=== PATIENT | male | born 1935 | race Caucasian/White ===

== ENCOUNTER → 2018-06-24 09:52 | Day surgery (SDC) | payer MEDICARE, OTHER ==
[~2018-06-24 09:52] MED LIST: Bupivacaine 0.25% SDV PF* 10 ML VIAL INJ ONE
[2018-06-24 12:47] VITALS: BP 130/68
--- NOTE | 2018-06-24 17:41 | OP ---
OPERATIVE REPORT: DATE OF OPERATION: 06/24/18 DATE OF : 37 SURGEON: Loco Clemente MD OVERHAULER BUS TRUCK: ROBERTO CARLOS Piedra ANESTHESIOLOGIST: None. ANESTHESIA: Local only with 0.25% plain Marcaine. PRE-OP DIAGNOSIS: Right ulnar-sided hand mass. POST-OP DIAGNOSIS: Right ulnar-sided hand mass most consistent with a cyst. OPERATIVE PROCEDURE: Excision of right ulnar-sided hand mass. INDICATIONS: Anthony has had the mass for some time. It has been stable, but it is quite large. It h as a darker discoloration to it. We had talked about risks and benefits of surgery. He wanted to calhoun ve it excised. FINDINGS: See above and below. ESTIMATED BLOOD LOSS: 1 mL. COMPLICATIONS: None. DESCRIPTION OF PROCEDURE: Anthnoy was seen in the preoperative holding area. The correct side, site, and procedure were identified. We had a time-out. I anesthetized the operative area with 0.25% Iker jonathan. We then came back to the operating room and the arm was prepped and draped in the usual fashio n and time-out was performed. The arm was exsanguinated with the Esmarch and the forearm tourniquet was inflated to 225 mmHg. I ma de a longitudinal incision in the mid axial line over the distal palm, extending out over the fifth M CP joint. The mass was from the underlying tissue via a marginal excision through the reac tive zone. It was generally filled with serous type darker fluid. It was traced back towards the [facility] MCP joint where it was amputated and handed off as a specimen. Ultimately, it was about 2.5 to 3 cm long x 1 cm deep and 1.5 cm wide. I did cauterize the ulnar aspect of the fifth MCP joint with a bipolar cautery to try to prevent any recurrence. We irrigated out the wound. Skin was closed with 4-0 nylon suture. Soft dressing was applied and he was taken to the recovery room in stable conditio n. [id number]/[facility] #: [id number]
== END | disposition home or self-care (01) ==
LOC: OR 09:52
PROVIDERS: ATTEND Orthopaedic Surgery Hand Surgery
DX: D23.61 Other benign neoplasm of skin of right upper limb, including shoulder (principal)
CPT/HCPCS: 88304; 88341; 88342; 88360; J3490

== ENCOUNTER 2019-05-30 10:13 | Inpatient (IN) | payer MEDICARE, OTHER ==
--- NOTE | 2019-05-30 10:36 | ED ---
GI/ HPI - HPI Summary HPI Summary: This patient is an 83 year old male presenting to [facility] with a chief complaint of increased hemoptysis since last night. He states he has been intermittently dealing with this since one month ago and that it was worse last night. He states it gets worse when he lies supine. He states he was coughing up clots. He states this problem first began a month ago when he was treated for pneumonia. He states he is supposed to get a CT scan on Saturday. He denies vomiting. - History of Current Complaint Chief Complaint: EDUpperRespComplaint Time Seen by Provider: 05/30/19 10:27 Stated Complaint: COUGHING UP BLOOD PER PT Hx Obtained From: Patient Onset/Duration: Started Hours Ago Pain Intensity: 0 - Allergy/Home Medications Allergies/Adverse Reactions: Allergies Allergy/AdvReac Type Severity Reaction Status Date / Time Sulfa (Sulfonamide Allergy See Comment Verified 05/30/19 10:19 Antibiotics) Home Medications: Home Medications Acetaminophen TAB* [Tylenol TAB*] 650 mg PO Q4H PRN 05/30/19 [History Confirmed 05/30/19] Dutasteride [Avodart] 0.5 mg PO DAILY 05/30/19 [History Confirmed 05/30/19] Omeprazole 20 mg PO DAILY 05/30/19 [History Confirmed 05/30/19] Prochlorperazine TAB* [Compazine Tab*] 10 mg PO Q6HR PRN 05/30/19 [History Confirmed 05/30/19] PMH/Surg Hx/FS Hx/Imm Hx Endocrine/Hematology History: Denies: Hx Diabetes Cardiovascular History: Denies: Hx Hypertension History: Denies: Hx Dialysis, Hx Renal Disease Musculoskeletal History: Reports: Hx Arthritis - Cancer History Cancer Type, Location and Year: melanoma - Surgical History Surgery Procedure, Year, and Place: right hand Infectious Disease History: No Infectious Disease History: Denies: Traveled Outside the [place] in Last 30 Days - Family History Known Family History: Negative: Cardiac Disease - Social History Occupation: Retired Lives: With Family Review of Systems Negative: Fever Positive: Cough Negative: Vomiting Positive: other - Hemoptysis All Other Systems Reviewed And Are Negative: Yes Physical Exam - Summary Physical Exam Summary: Appearance: The patient is well-nourished in no acute distress and in no acute pain. Skin: The skin is warm and dry, and skin color reflects adequate perfusion. HEENT: The head is normocephalic and atraumatic. The pupils are equal and reactive. The conjunctivae are clear and without drainage. Nares are patent and without drainage. Mouth reveals moist mucous membranes, and the throat is without erythema and exudate. The external ears are intact. The ear canals are patent and without drainage. The tympanic membranes are intact. Neck: The neck is supple with full range of motion and non-tender. There are no carotid bruits. There is no neck vein distension. Respiratory: Chest is non-tender. Decreased breath sounds on the left egophony. Cardiovascular: Heart is regular rate and rhythm. There is no murmur or rub auscultated. There is no peripheral edema and pulses are symmetrical and equal. Abdomen: The abdomen is soft and non-tender. There are normal bowel sounds heard in all four quadrants and there is no organomegaly palpated. Musculoskeletal: There is no back tenderness noted. Extremities are non-tender with full range of motion. There is good capillary refill. There is no peripheral edema or calf tenderness elicited. Neurological: Patient is alert and oriented to person, place and time. The patient has symmetrical motor strength in all four extremities. Cranial nerves are grossly intact. Deep tendon reflexes are symmetrical and equal in all four extremities. Psychiatric: The patient has an appropriate affect and does not exhibit any anxiety or depression. Triage Information Reviewed: Yes Vital Signs On Initial Exam: Initial Vitals Temp Pulse Resp BP Pulse Ox 98.8 F 94 20 137/87 97 05/30/19 10:16 05/30/19 10:16 05/30/19 10:16 05/30/19 10:16 05/30/19 10:16 Vital Signs Reviewed: Yes Procedures - Sedation Patient Received Moderate/Deep Sedation with Procedure: No Diagnostics - Vital Signs Vital Signs Temp Pulse Resp BP Pulse Ox 05/30/19 10:16 98.8 F 94 20 137/87 97 - Laboratory Result Diagrams: 05/30/19 11:28 05/30/19 11:28 Lab Statement: Any lab studies that have been ordered have been reviewed, and results considered in the medical decision making process. - CT CTA Chest CT Interpretation Completed By: Radiologist Summary of CT Findings: 1. No CT evidence of pulmonary embolism. 2. Again seen is a left hilar mass occluding the left lower lobe bronchus with complete consolidation of the left lower lobe. Although appearance is stable, there is new mediastinal lymphadenopathy. The largest lymph node is a left of midline pretracheal lymph note measuing 2 cm. 3. TRANSFER AGENT July 07, 2018 CT examination there is interval appearance of a destrutive soft tissue lesion at the right of midline L1 vertebral body. New metastatic disease is suspected. ED Physician has reviewed this report. - EKG 1057 Cardiac Rate: NL - 74 BPM EKG Rhythm: Sinus Rhythm Summary of EKG Findings: Normal sinus rhythm, normal ST, no ectopy, no STEMI. ED Physician has reviewed and interpreted this report. GIGU Course/Dx - Course Course Of Treatment: Mr. Mandujano tingling concern for hemoptysis. He is a very vague historian but it appears as though he has had hemoptysis intermittently for several weeks. It was particularly bad yesterday and kept him awake a lot last night coughing up clots. 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 He's had a recent chest x-ray which she says was negative. He was recently treated with azithromycin for presumed pneumonia. He was nontoxic in appearance with stable vitals. He was found to have a hemoglobin of about 12 which is consistent with his last 2 however these are new in the last couple of weeks with nothing to compare to. CTA of his chest reveals a mediastinal mass. The radiologist is reporting that this is unchanged from previous exams however I cannot find any previous exams in our system that are read as having a mediastinal mass. I spoke with Dr. Salazar carbon cutter for Dr. Xiao and she recommended admission to the hospitalist. I spoke with Dr. Reyes. - Diagnoses Provider Diagnoses: Hemoptysis, Lung mass - Physician Notifications Discussed Care Of Patient With: Stephani Salazar Time Discussed With Above Provider: 14:14 Instructed by Provider To: Admit As Inpatient - Critical Care Time Critical Care Time: 30-74 min Discharge ED - Sign-Out/Discharge Documenting (check all that apply): Patient Departure - Admission, accepted by Dr. Reyes, Hospitalist - Discharge Plan Condition: Stable Disposition: ADMITTED TO [facility] - Billing Disposition and Condition Condition: STABLE Disposition: Admitted to [facility] - Attestation Statements Document Initiated by Scribe: Yes Documenting Scribe: Loco Champagne Provider For Whom Scribe is Documenting (Include Credential): Beto Ramires MD Scribe Attestation: I, Loco Champagne, scribed for Beto Ramires MD on 05/30/19 at 2024. Scribe Documentation Reviewed: Yes Provider Attestation: The documentation as recorded by the scribe, Loco Champagne accurately reflects the service I personally performed and the decisions made by me, Beto Ramires MD Status of Scribe Document: Viewed
[2019-05-30 11:38] LABS: ABS Basophils 0.1 10^3/ul (0-0.2); ABS Lymphocytes 0.7 10^3/ul (1.0-4.8); ABS Monocytes 0.8 10^3/ul (0-0.8); ABS Neutrophils 6.7 10^3/ul (1.5-7.7); Hematocrit 36 % (42-52); Hemoglobin 12.1 g/dL (14.0-18.0); Lymphocyte % 8.2 %; Mean Corpuscular HGB Conc 34 g/dL (31-36); Mean Corpuscular Hemoglobin 30 pg (27-31); Mean Corpuscular Volume 90 fL (80-94); Mean Platelet Volume 7.3 fL (7.4-10.4); Platelet Count 275 10^3/uL (150-450); Red Blood Count 3.98 10^6 /uL (4.18-5.48); Red Cell Distribution Width 13 % (10-15); White Blood Count 8.2 10^3/uL (3.5-10.8)
[2019-05-30 11:51] LABS: INR 1.35 (0.82-1.09)
[2019-05-30 11:55] LABS: ALT 20 U/L (7-52); AST 14 U/L (13-39); Albumin 3.6 g/dL (3.2-5.2); Albumin/Globulin Ratio 0.9 (1-3); Alkaline Phosphatase 64 U/L (34-104); Anion Gap 9 mmol/L (2-11); BUN/Creatinine Ratio 21.1 (8-20); Blood Urea Nitrogen 19 mg/dL (6-24); C Reactive Protein 98.68 mg/L (<8.01); CO2 Carbon Dioxide 23 mmol/L (22-32); Calcium 9.1 mg/dL (8.6-10.3); Chloride 101 mmol/L (101-111); EGFR African American 97.8 (>60); EGFR Non-African American 80.8 (>60); Globulin 3.8 g/dL (2-4); Glucose 106 mg/dL (70-100); Potassium 3.8 mmol/L (3.5-5.0); Sodium 133 mmol/L (135-145); Total Protein 7.4 g/dL (6.4-8.9)
[2019-05-30 12:03] LABS: Troponin I 0.05 ng/mL (<0.04)
[2019-05-30] MEDS ORDERED: Iohexol 350* (CONTRAST) 500 ML MDV IV ONE (12:06)
[2019-05-30] MEDS ORDERED: Levofloxacin 750 MG IVPREMIX(* 750 MG/150 ML BAG IVPB ONE (14:16)
[2019-05-30] MEDS ORDERED: Morphine INJ* 4 MG/ML 1 ML SYRINGE (NEW SYRINGE VERSION) IV ONE (15:29)
[2019-05-30] MEDS ORDERED: Morphine INJ* 2 MG/ML 1 ML SYRINGE (TWO MG - NEW SYRINGE VERSION) ONE ×2 (15:33→19:36)
[2019-05-30] MEDS ORDERED: Acetaminophen TAB* 325 MG PO PRN (15:37)
[2019-05-30] MEDS ORDERED: traMADol TAB* 50 MG PO PRN (15:43)
[2019-05-30] MEDS ORDERED: NS 0.9% 1000 ML** 1,000 ML IV SCH (15:45)
[2019-05-30] MEDS ORDERED: Piperacillin/Tazobac ADVAN(*) 3.375 GM in NS 0.9% 100 ML* 100 ML IVPB ONE (15:46)
[2019-05-30] MEDS ORDERED: Iohexol 300* (CONTRAST) 10 ML SDV IV ONE ×2 (15:55→17:59)
[2019-05-30] MEDS ORDERED: Prochlorperazine TAB* 10 MG PO PRN (15:55)
[2019-05-30] MEDS ORDERED: Zosyn 3.375 GM IV - ED ONCE IVPB ONE ×2 (16:00)
[2019-05-30] MEDS ORDERED: Zosyn per Pharmacy* NOTE FOLLOW UP SCH (16:00)
[2019-05-30] MEDS ORDERED: Heparin VIAL(*) 5000 UNITS/ML VIAL (FIVE THOUSAND) SUBCUT SCH (22:00)
[2019-05-30] MEDS: ZOSYN 3.375 GM Q8H per EXTENDED INFUSION IVPB SCH ×2 (22:03)
[2019-05-30] MEDS: Melatonin 3 MG TAB PO PRN (22:13)
--- NOTE | 2019-05-31 03:02 | HP ---
CC: Elliot Nguyen NP; Dr. Zaire Xiao * MEDICINE HISTORY AND PHYSICAL: DATE OF ADMISSION: 05/30/19 PROVIDER: Louann Wright NP ATTENDING PHYSICIAN: Dr. Matthew Reyes * (dictated by Louann Wright NP). PRIMARY CARE PROVIDER: Elliot Nguyen NP CONSULTING ONCOLOGIST: Stephani Salazar MD CHIEF COMPLAINT: Hemoptysis. HISTORY OF PRESENT ILLNESS: Mr. Mandujano is an 83-year-old male who presents to the ER today with concern for progressive hemoptysis. He reports intermittent hemoptysis that has been ongoing for about a month. On 05/07/19, he saw his PCP and, at that time. was ordered a chest x-ray and started on azithromycin. His chest x-ray did not show any acute pathology, and he states that since he has treated the cough with the antibiotics, the symptoms went away. On Saturday, this past week, he said that the hemoptysis started up again and he coughed up several large blood clots. It resolved, got better, and then it occurred again on Saturday evening where he states that he had a lot of coughing with clots and then this morning he got better again. However, his cough has been more aggravated. It is difficult for him to lie down. He has felt more fatigued and ultimately decided to come in for more evaluation. He does report that his health has felt like it has been going downhill. He reports decreased appetite. He denies any chest pain or leg swelling. He does fatigue more easily than he used to. He reports constipation. He also has right hip pain, for which he has seen Dr. Pino. He states that he had an x-ray , which showed he had arthritis and he recently received a steroid injection with little effect. Right now, his right hip pain is of the most concern to him and states that this is very bothersome for him. He also has right lower abdominal pain, for which he saw Surgery with concern for hernia but was told that he did not have a hernia. Here in the ER, Mr. Mandujano had a CT of the chest, which showed concern for a left hilar mass occluding the left lower lobe bronchus with complete consolidation in the left lower lobe. Although it appears as stable, there is new mediastinal lymphadenopathy. The largest lymph node is a left of midline pretracheal lymph node measuring 2 cm. Compared with the scan on 07/07/18 CT examination, there is interval appearance of a destructive soft tissue lesion at the right of midline L1 vertebral body. New metastatic disease is suspected. No CT evidence of pulmonary embolism. Given these findings and presentation, Hospital Medicine was consulted for admission. PAST MEDICAL HISTORY: Significant for: 1. 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 The patient notes he also has a history of having a pleural tumor removed. 2. BPH. 3. Hyperlipidemia. 4. Anxiety. 5. Postherpetic neuralgia. 6. Cataract removal. HOME MEDICATIONS: 1. Avodart 0.5 mg daily. 2. Compazine 10 mg q.6 hours p.r.n. 3. Tylenol 650 q.4 hours p.r.n. 4. Omeprazole 20 mg daily. ALLERGIES: Include SULFA DRUGS. FAMILY HISTORY: The patient does not recall. SOCIAL HISTORY: He is a former smoker, having formerly smoked a pipe. He states he quit 15 years ago. He rarely drinks alcohol. He is and lives with his . He has 2 children. He names his , Una Mandujano, as his surrogate decision maker and healthcare proxy. REVIEW OF SYSTEMS: A 14-point review of systems was completed. All pertinent positives and negatives as per HPI and all others not mentioned are negative. PHYSICAL EXAMINATION GENERAL: This is an elderly male seen lying in the bed, in no acute distress. He is alert and conversive. VITAL SIGNS: Temperature 98.8, heart rate 85, respiratory rate 20, blood pressure 138/67, O2 saturation is 96% on room air. HEENT: Head is atraumatic and normocephalic. Pupils are equal, round, and reactive to light and accommodation. Extraocular movements are intact. Sclerae anicteric. Oral mucosa is moist. There is no oropharyngeal erythema or exudate. NECK: Supple with full range of motion. No JVD noted. No lymphadenopathy appreciated. LUNGS: Notably decreased on the left side with positive egophony noted in the lower lobe. CARDIAC: Regular rate and rhythm. No murmurs appreciated. There is no peripheral edema. Distal pulses are 2+ and symmetric in the radial and dorsalis pedis and posterior tibialis sites. ABDOMEN: Soft, nondistended. There is tenderness with palpation to the right lower abdomen extending into the groin. MUSCULOSKELETAL: No clubbing or cyanosis of the digits. There is full active range of motion of all 4 extremities. NEURO: He is alert and oriented x3. No focal deficits noted. Speech is fluent. Cranial nerves are grossly intact. SKIN: Warm and dry. Appears grossly intact. LABORATORY DATA AND DIAGNOSTIC STUDIES: CBC: WBC 8.2, hemoglobin 12.1, hematocrit 36, platelet count 275. INR 1.35. CMP: Sodium 133, potassium 3.8, chloride 101, carbon dioxide 23, BUN 19, creatinine 0.90, glucose 106, lactic acid 1.0, calcium 9.1. Total bilirubin 0.6, AST 14, ALT 20. Troponin 0.05. CRP 98.68. Albumin 3.6. CT of the chest as per above. EKG shows normal sinus rhythm with no ST- or T-wave changes. Old medical records were reviewed. ASSESSMENT AND PLAN: This is an 83-year-old male who presents today with concern for hemoptysis and is found to have concern for a left hilar mass and left lower lobe consolidation with new mediastinal lymphadenopathy. He will be admitted and plan is as follows: 1. Lung mass with mediastinal lymphadenopathy. This may represent metastatic disease or new malignancy. This is unclear. I have reviewed the case with Dr. Stephani Salazar, who will see the patient tomorrow. I have also put a consult in for Pulmonology to follow the patient on Saturday, as they are not on service this weekend. I did touch base with Dr. Varma briefly and make her aware of the patient. Mr. Mandujano is currently stable, not requiring any respiratory interventions at this time. He is maintaining his airway. He is not requiring oxygen. We will continue with supportive care, and he is currently receiving antibiotics for concern for his left lower lobe consolidation. He was started on Levaquin in the ER, but given the risks that are associated with fluoroquinolones in the elderly, I have switched him to Zosyn. 2. Elevated troponin. We will recheck this. He is not complaining of any chest pain. This may be reactive and suspect secondary to demand ischemia. 3. Anemia. Appears chronic and within baseline. Recheck tomorrow to follow. 4. Hyponatremia. It was checked a few days ago and was 132. Suspect this may be secondary to volume depletion, and we will replete him with an additional bag of normal saline and recheck tomorrow. 5. BPH. He can continue his home Avodart. 6. Right hip pain. This was determined to be osteoarthritis by x-ray and he has followed in the outpatient setting with Dr. Pino for this. He is in quite a bit of pain and has requested something stronger. We will start with 1 mg morphine and titrate upwards based on tolerance and I will also trial him on p.r.n. tramadol. 7. FEN. Regular diet. 8. DVT prophylaxis. Chemoprophylaxis is contraindicated in a patient with hemoptysis. We will order him SCDs. 9. Code status. He is a full code. TIME SPENT: Approximately 60 minutes was spent on this admission, with more than half the time spent [id number] with the patient and family obtaining history and physical, performing the physical examination, and reviewing the plan of care. The plan of care was also reviewed with my attending, Dr. Reyes , who is in agreement. LOUANN WRIGHT, CHELSI [id number]/[facility] #: [id number] TULIO
[2019-05-31 05:26] LABS: ABS Basophils 0.1 10^3/ul (0-0.2); ABS Lymphocytes 0.7 10^3/ul (1.0-4.8); ABS Monocytes 0.9 10^3/ul (0-0.8); ABS Neutrophils 7.4 10^3/ul (1.5-7.7); Eosinophil % 0.3 %; Hematocrit 35 % (42-52); Hemoglobin 11.7 g/dL (14.0-18.0); Lymphocyte % 7.7 %; Mean Corpuscular HGB Conc 34 g/dL (31-36); Mean Corpuscular Hemoglobin 31 pg (27-31); Mean Corpuscular Volume 90 fL (80-94); Mean Platelet Volume 7.4 fL (7.4-10.4); Platelet Count 245 10^3/uL (150-450); Red Blood Count 3.85 10^6 /uL (4.18-5.48); Red Cell Distribution Width 13 % (10-15); White Blood Count 9.1 10^3/uL (3.5-10.8)
[2019-05-31] MEDS: ZOSYN 3.375 GM Q8H per EXTENDED INFUSION IVPB SCH ×6 (05:28→22:14)
[2019-05-31] MEDS: oxyCODONE/Acetamin 5/325 MG* TAB PO PRN (05:37)
[2019-05-31 05:40] LABS: BUN/Creatinine Ratio 19.4 (8-20); Calcium 8.8 mg/dL (8.6-10.3); EGFR African American 94.1 (>60); EGFR Non-African American 77.8 (>60); Potassium 3.7 mmol/L (3.5-5.0)
[2019-05-31] MEDS: Finasteride TAB* 5 MG PO SCH (09:18)
[2019-05-31] MEDS: Morphine INJ* 2 MG/ML 1 ML SYRINGE (TWO MG - NEW SYRINGE VERSION) IV PRN ×3 (09:18→19:51)
[2019-05-31] MEDS: Pantoprazole TAB * 40 MG TAB PO SCH (09:18)
--- NOTE | 2019-05-31 11:30 | PN ---
Subjective Date of Service: 05/31/19 Interval History: Patient reports that hemoptysis is improving, less frequent and smaller amounts. Denies chest pain. Denies abd pain n/v/d. Denies fever or chills. Family History: Unchanged from Admission Social History: Unchanged from Admission Past Medical History: Unchanged from Admission Objective Active Medications: Acetaminophen (Tylenol Tab*) 650 mg PO Q4H PRN PRN Reason: MILD PAIN or TEMP > 100.4 Finasteride (Proscar Tab*) 5 mg PO DAILY [facility]; Protocol Last Admin: 05/31/19 09:18 Dose: 5 mg Piperacillin Sod/Tazobactam (Sod 3.375 gm/ Sodium Chloride) 100 mls @ 25 mls/ hr IVPB Q8H [facility] Last Admin: 05/31/19 05:28 Dose: 25 mls/hr Melatonin (Melatonin) 3 mg PO BEDTIME PRN PRN Reason: SLEEP Last Admin: 05/30/19 22:13 Dose: 3 mg Morphine Sulfate (Morphine Inj (Syringe))*) 2 mg IV Q4H PRN PRN Reason: PAIN - SEVERE Last Admin: 05/31/19 09:18 Dose: 2 mg Ondansetron HCl (Zofran Inj*) 4 mg IV Q6H PRN PRN Reason: NAUSEA/VOMITING Oxycodone/Acetaminophen (Percocet 5/325 Tab*) 1 tab PO Q4H PRN PRN Reason: PAIN - MODERATE Last Admin: 05/31/19 05:37 Dose: 1 tab Pantoprazole Sodium (Protonix Tab*) 40 mg PO DAILY [facility] Last Admin: 05/31/19 09:18 Dose: 40 mg Pharmacy Consult (Zosyn Per Pharmacy*) 1 note FOLLOW UP .ZOSYN PER PHARMACY [facility] Prochlorperazine (Compazine Tab*) 10 mg PO Q6HR PRN PRN Reason: NAUSEA/VOMITING Tramadol HCl (Ultram*) 50 mg PO Q6H PRN PRN Reason: PAIN - MODERATE Last Admin: 05/30/19 17:38 Dose: 50 mg Vital Signs - 8 hr 05/31/19 05/31/19 05/31/19 05:37 07:00 07:30 Temperature 98.4 F Pulse Rate 76 Respiratory 18 16 20 Rate Blood Pressure 129/47 (mmHg) O2 Sat by Pulse 94 Oximetry 05/31/19 05/31/19 05/31/19 08:00 09:18 10:15 Temperature Pulse Rate Respiratory 16 16 16 Rate Blood Pressure (mmHg) O2 Sat by Pulse Oximetry Oxygen Devices in Use Now: None Eyes: No Scleral Icterus Ears/Nose/Mouth/Throat: Clear Oropharnyx, Mucous Membranes Moist Neck: NL Appearance and Movements; NL JVP, Trachea Midline Respiratory: Symmetrical Chest Expansion and Respiratory Effort, Clear to Auscultation, - - diminshed t/o bilat Cardiovascular: NL Sounds; No Murmurs; No JVD, No Edema Abdominal: NL Sounds; No Tenderness; No Distention Extremities: No Edema, No Clubbing, Cyanosis Skin: No Rash or Ulcers Neurological: Alert and Oriented x 3 Nutrition: Taking PO's Result Diagrams: 06/02/19 05:53 06/02/19 05:53 Microbiology and Other Data: Microbiology 05/30/19 21:14 Gram Stain - Final Sputum 05/31/19 04:15 Legionella Urinary Antigen - Final Urine Negative Legionella Antigen Streptococcus pneumoniae Ag Screen - Final Negative S. pneumo Antigen Assess/Plan/Problems-Billing Assessment: Mr. Mandujano is a 83 y.o male with a hx of porocarcinoma of the right hand, bph , hld, anxiety who presented to the emergency room with hemoptysis that started saturday night. - Patient Problems (1) Hemoptysis Status: Acute Code(s): R04.2 - HEMOPTYSIS SNOMED Code(s): 49307763 Comment: Improving - will continue treatment for pneumonia with zosyn - suspect this couls also be related to his lung mass- Dr. Varma to see tomorrow (2) Lung mass Status: Acute Code(s): R91.8 - OTHER NONSPECIFIC ABNORMAL FINDING OF LUNG FIELD SNOMED Code(s): 333168150 Comment: - Patient with left hilar mass occluding left lower lobe consistent with prior CT from 06/2018- but with new enlarged lymph nodes - Dr. Varma consulted in will see the patient in the AM (3) Paraspinal mass Status: Acute Code(s): R22.2 - LOCALIZED SWELLING, MASS AND LUMP, TRUNK SNOMED Code(s): 419970327 Comment: - patient informed - large right paraspinal mass 7x5x5 cm with likely l1l2 spine involvement - will be seen by Dr. Albert tomorrow (4) Pneumonia Status: Acute Code(s): J18.9 - PNEUMONIA, UNSPECIFIED ORGANISM SNOMED Code(s ): 760204206 Comment: mild cough with left lower lung consolidation vs mass and new - enlarged lymph nodes - will continue zosyn (5) Chronic right hip pain Status: Acute Code(s): M25.551 - PAIN IN RIGHT HIP; G89.29 - OTHER CHRONIC PAIN SNOMED Code(s): 20782367 Comment: suspect this is likely related to his right paraspinal mass - will continue pain medications and adjust as needed - will stop tramadol no relief of pain (6) Elevated troponin Status: Acute Code(s): R79.89 - OTHER SPECIFIED ABNORMAL FINDINGS OF BLOOD CHEMISTRY SNOMED Code(s): 289480034 Comment: - elevated on initial labwork 0.05 - repeat - 0.00 - patient without chest pain - likely lab error on initial draw. (7) DVT prophylaxis Status: Acute Code(s): Z29.9 - ENCOUNTER FOR PROPHYLACTIC MEASURES, UNSPECIFIED SNOMED Code(s): 216363554 Comment: scd's - d/t hemoptysis (8) Full code status Status: Acute Code(s): Z78.9 - OTHER SPECIFIED HEALTH STATUS SNOMED Code(s) : 954275001 Status and Disposition: inpatient
[2019-05-31] MEDS: Ondansetron INJ* 2 MG/ML VIAL IV PRN (19:51)
[2019-05-31] MEDS: Melatonin 3 MG TAB PO PRN (19:56)
[2019-06-01] MEDS: Ondansetron INJ* 2 MG/ML VIAL IV PRN (04:37)
[2019-06-01] MEDS: Morphine INJ* 2 MG/ML 1 ML SYRINGE (TWO MG - NEW SYRINGE VERSION) IV PRN ×5 (04:38→23:40)
[2019-06-01 06:10] LABS: BUN/Creatinine Ratio 14.3 (8-20); Calcium 8.8 mg/dL (8.6-10.3); EGFR African American 96.5 (>60); EGFR Non-African American 79.8 (>60); Potassium 3.9 mmol/L (3.5-5.0)
[2019-06-01] MEDS: ZOSYN 3.375 GM Q8H per EXTENDED INFUSION IVPB SCH ×6 (06:26→23:55)
[2019-06-01] MEDS: Pantoprazole TAB * 40 MG TAB PO SCH (08:04)
[2019-06-01] MEDS: Finasteride TAB* 5 MG PO SCH (08:05)
--- NOTE | 2019-06-01 09:11 | PN ---
Progress Note - Progress Note Date of Service: 06/01/19 SOAP: Subjective: []Minimal hemoptysis since admission, was mostly that one night. Still with back pain but morphine helps. No other focal pain. Breathing is fine. No chest pain. No fevers or chills. Acetaminophen (Tylenol Tab*) 650 mg PO Q4H PRN PRN Reason: MILD PAIN or TEMP > 100.4 Finasteride (Proscar Tab*) 5 mg PO DAILY [facility]; Protocol Last Admin: 06/01/19 08:05 Dose: 5 mg Piperacillin Sod/Tazobactam (Sod 3.375 gm/ Sodium Chloride) 100 mls @ 25 mls/ hr IVPB Q8H [facility] Last Admin: 06/01/19 06:26 Dose: 25 mls/hr Melatonin (Melatonin) 3 mg PO BEDTIME PRN PRN Reason: SLEEP Last Admin: 05/31/19 19:56 Dose: 3 mg Morphine Sulfate (Morphine Inj (Syringe))*) 2 mg IV Q4H PRN PRN Reason: PAIN - SEVERE Last Admin: 06/01/19 08:05 Dose: 2 mg Ondansetron HCl (Zofran Inj*) 4 mg IV Q6H PRN PRN Reason: NAUSEA/VOMITING Last Admin: 06/01/19 04:37 Dose: 4 mg Oxycodone/Acetaminophen (Percocet 5/325 Tab*) 1 tab PO Q4H PRN PRN Reason: PAIN - MODERATE Last Admin: 05/31/19 05:37 Dose: 1 tab Pantoprazole Sodium (Protonix Tab*) 40 mg PO DAILY [facility] Last Admin: 06/01/19 08:04 Dose: 40 mg Pharmacy Consult (Zosyn Per Pharmacy*) 1 note FOLLOW UP .ZOSYN PER PHARMACY [facility] Prochlorperazine (Compazine Tab*) 10 mg PO Q6HR PRN PRN Reason: NAUSEA/VOMITING Last Admin: 06/01/19 07:58 Dose: 10 mg Objective: [] Vital Signs Temp Pulse Resp BP Pulse Ox 97.8 F 84 16 133/60 93 06/01/19 02:20 06/01/19 02:20 06/01/19 08:05 06/01/19 02:20 06/01/19 02:20 HEENT: OM moist, no blood. BL wheezing, no crackles RRR S1S2 +BS NT ND No CVA tenderness. Neuro - gross non focal. 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 Now presents with hemoptysis and back pain, CT scan shows a left hilar mass with consolidation of LLL and a right paraspinal mass. Ddx: lung cancer as most likely, recurrent porocarcinoma also possible. Discussed likely metastatic cancer that is incurable. Therapy will include radiation, possible to both lesions and systemic therapy. We need tissue diagnosis to understand his prognosis. If it is recurrent porocarcinoma or a lung cancer without target mutation or high immunotherpy markers, average survival is under a year. With targeted or immunotherapy can be several years. He wants to maintain quality of life. Plan: []1. MRI brain 2. Ether bronchoscopy or CT/US guided bx tomorrow. 3. Consultation radiation oncology 4. Pain. - Morphine 15 mg po bid - continue prn oxycocone 5. Senna 2 per day for bowls 6. ID. continue Zosyn for now.
[2019-06-01] MEDS: Morphine TAB Extended Release (*) 15 MG TAB.ER PO SCH (12:21)
--- NOTE | 2019-06-01 16:58 | CONSULT ---
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 Patient presents for evaluation of hemoptysis. Patient with intermittent episodes of hemoptysis over the past month. He was seen by his primary care physician May 07, azithromycin was prescribed. He also had chest x-ray at that time which did not reveal pneumonia. Patient had worsening of the hemoptysis, had coughed up several blood clots few days back. Symptoms improved and recurred again this weekend and he decided to come in for further evaluation patient reports decreased appetite recently. He also has been having generalized fatigue. Patient denies significant shortness of breath, chest pain or lower extremity swelling. Patient also reports significant back pain. Further evaluation in the emergency room included a CT scan of the chest. I have personally reviewed the CT scan and with the patient at bedside-patient with evidence of left hilar mass with possible occlusion of the left lower lobe and possible endobronchial extension. Patient also with mediastinal adenopathy which was also seen on the previous CT scan. Patient also with evidence of destructive soft tissue lesion at the level of L1 vertebral body. Patient was seen and examined at bedside. Patient reports no further episodes of hemoptysis. Patient reports back pain that is improved with morphine. He denies shortness of breath, chest pain, palpitations. He does report constipation. Past medical history; as described above Past surgical history: Status post excision of Porocarcinoma, removal of pleural tumor Allergies: sulfa drugs Meds: Avodart, Compazine, Tylenol, Omeprazole FHX: Father- due to Cancer - bone. Mother: due to Thoracic Aneurysm Rupture. Brother- Prostate cancer SocialHx: Former smoker, quit 15 years ago. Denies drug use. Rarely consumes alcohol. Lives at home with his . ROS: All 12 systems reviewed and as per HPI. Physical Exam: Vital Signs Temp Pulse Resp BP Pulse Ox 99.7 F 80 18 128/54 94 06/01/19 15:17 06/01/19 15:17 06/01/19 16:18 06/01/19 15:17 06/01/19 15:17 Gen: Patient lying in bed in no apparent distress HEENT: Pupils equal and reactive to light, mucous membranes moist Lungs: Decreased breath sounds on left side CVS: S1, S2+, regular Abd: Soft, BS+ Ext: Normal ROM Neuro: No focal deficits Skin: No rash Laboratory Results - last 24 hr 06/01/19 05:40 Sodium 134 L Potassium 3.9 Chloride 100 L Carbon Dioxide 27 Anion Gap 7 BUN 13 Creatinine 0.91 Est GFR ( Amer) 96.5 Est GFR (Non-Af Amer) 79.8 BUN/Creatinine Ratio 14.3 Glucose 116 H Calcium 8.8 Impression/Recommendations: 83 -year-old male with prior history of Porocarcinoma of lung admitted for evaluation of hemoptysis Patient noted to have an abnormality on the CT chest Patient with left hilar mass and narrowing of left lower lobe Given evidence of hemoptysis, suspect possible endobronchial lesion in the left lower lobe area Will schedule the patient for bronchoscopy for airway inspection and for obtaining endobronchial biopsy and bronchoalveolar lavage Procedure was discussed in detail with the patient Associated risk including risk of worsening bleeding, worsening respiratory status were also discussed Less concern for pneumothorax given plan for endobronchial biopsy only Patient agreeable to undergoing the procedure Further recommendations pending bronchoscopy today If bronchoscopy is a negative, patient will need biopsy of the spinal lesion Plan was discussed with patient, bedside RN and Dr. Xiao
[2019-06-01] MEDS ORDERED: Lidocaine 1% INJ* 10 MG/ML 30 ML SDV ONE (20:08)
[2019-06-01] MEDS ORDERED: Lidocaine 2% PF* 10 ML AMP ONE (20:09)
[2019-06-01] MEDS ORDERED: Lidocaine 2% JELLY* 6 ML JELLY TOPICAL ONE (20:10)
[2019-06-01] MEDS ORDERED: Midazolam* 1 MG/ML 2 ML VIAL (2 MG) ONE (20:29)
[2019-06-01] MEDS ORDERED: Benzocaine/Butamben/Tetracain (CETACAINE - SINGLE USE) 5 gm TOPICAL ONE (20:30)
[2019-06-01] MEDS ORDERED: Succinylcholine* 20 MG/ML 10 ML VIAL ONE (20:32)
[2019-06-01] MEDS ORDERED: fentaNYL* 50 MCG/ML 2 ML VIAL (100 MCG VIAL) ONE (20:40)
[2019-06-01] MEDS ORDERED: Propofol* 10 MG/ML 20 ML BTL ONE (21:47)
[2019-06-01] MEDS ORDERED: Dexamethasone IV* 4 MG/ML 1 ML (4 MG) ONE (21:47)
[2019-06-01] MEDS ORDERED: Lidocaine 2% PF * 5 ML VIAL ONE (21:47)
[2019-06-01] MEDS ORDERED: Ondansetron INJ* 2 MG/ML VIAL ONE (21:47)
[2019-06-01] MEDS ORDERED: Levalbuterol 0.63MG/3ML NEB* UNIT OF USE INH ONE (22:00)
[2019-06-01] MEDS ORDERED: Acetaminophen TAB* 325 MG PO PRN (22:02)
[2019-06-01] MEDS ORDERED: Levalbuterol 0.63MG/3ML NEB* UNIT OF USE INH PRN (22:02)
[2019-06-01] MEDS ORDERED: Naloxone* 0.4 MG/ML 1 ML VIAL IV PRN (22:02)
--- NOTE | 2019-06-01 22:03 | BRIEFOPN ---
Brief Operative/Procedure Note - Operation Details Pre-Op Diagnosis: Lung mass, hemoptysis Post-Op Diagnosis: Endobronchial lesion, left main stem Procedures: Bronchoscopy wiht EBBx and BAL Surgeon(s)/Proceduralists: jason Varma Anesthesia: [place]- Dr Munson Estimated Blood Loss: Minimal Findings: Endobronchial lesion with old blood eminating from left main stem bronchus. Near complete occlusion of LLL bronchus. Mucus plugs and blood clots in the area. No lesions on right side Specimen(s)/Culture(s) Description: Endobronchial biopsies from left main stem lesion, bronchial washings from lt main stem. Complications: None
[2019-06-01] MEDS ORDERED: Midazolam* 1 MG/ML 2 ML VIAL (2 MG) IV SLOW PU PRN (22:05)
--- NOTE | 2019-06-01 23:37 | PRO ---
BRONCHOSCOPY REPORT: DATE OF PROCEDURE: 06/01/19 PROCEDURE PERFORMED: Bronchoscopy with bronchoalveolar lavage and endobronchial biopsies from left mainstem. PRE-PROCEDURAL DIAGNOSIS: Hemoptysis, lung mass. ANESTHESIA: General anesthesia. ANESTHESIOLOGIST: Dr. Munson. DESCRIPTION OF PROCEDURE: Informed consent was obtained from the patient prior to the procedure after all the risks and benefits were thoroughly explained. The patient was admitted for evaluation of hemoptysis. CT scan showed medial segment of left lower lobe collapse and endobronchial narrowing on the left side. Appropriate time-out was performed and agreed on by the attending staff. The patient was intubated with a size 8.0 endotracheal tube. The flexible Olympus bronchoscope was inserted through ET tube for airway inspection. ET tube was positioned and confirmed to be 2 cm above the level of caterina. Bronchoscope was then advanced into the right bronchial tree, which was then inspected. No endobronchial lesions were noted. Bronchoscope was then advanced into the left bronchial tree. The patient was noted to have blood emanating from the left main stem bronchus down into the trachea. Bronchoscope was subsequently advanced into the left main stem bronchus. The patient was noted to have endobronchial lesion near the takeoff of left upper lobe and lower lobe bronchus with near complete occlusion of the area. Endobronchial lesion was noted with blood clot and mucus plug in the surrounding area. There was evidence of multilobated mass arising from the left lower lobe bronchus medial segment. Lesion was not very vascular. Endobronchial biopsies were obtained from that area. Thick mucus plugs and blood clots were also noted which were suctioned out. Bronchoscope could then be advanced into the left upper lobe and lingular segments. No lesions were noted there. Lower lobe bronchus was narrowed and bronchoscope could be passed with mild difficulty. There was big blood clot in that area. Bronchoscope was placed in that area and washings were obtained. Multiple biopsies were taken from the lesion. Bronchoscope was then withdrawn. The patient had bleeding post procedure that stopped spontaneously. The patient tolerated the procedure well. The patient was extubated and seen in Recovery in optimal condition. [id number]/CPS #: [id number] MTDD
[2019-06-02] MEDS: Senna TAB 8.6 mg* TAB PO SCH ×2 (00:14→21:39)
[2019-06-02] MEDS: Morphine TAB Extended Release (*) 15 MG TAB.ER PO SCH ×3 (00:14→21:38)
[2019-06-02] MEDS: Docusate CAP* 100 MG PO SCH ×2 (00:14→21:39)
[2019-06-02] MEDS: ZOSYN 3.375 GM Q8H per EXTENDED INFUSION IVPB SCH ×6 (05:28→21:40)
[2019-06-02 06:09] LABS: ABS Lymphocytes 0.5 10^3/ul (1.0-4.8); ABS Monocytes 0.3 10^3/ul (0-0.8); ABS Neutrophils 8.3 10^3/ul (1.5-7.7); Hematocrit 35 % (42-52); Hemoglobin 12.1 g/dL (14.0-18.0); Lymphocyte % 5.4 %; Mean Corpuscular HGB Conc 34 g/dL (31-36); Mean Corpuscular Hemoglobin 31 pg (27-31); Mean Corpuscular Volume 90 fL (80-94); Mean Platelet Volume 7.2 fL (7.4-10.4); Platelet Count 263 10^3/uL (150-450); Red Blood Count 3.93 10^6 /uL (4.18-5.48); Red Cell Distribution Width 13 % (10-15); White Blood Count 9.2 10^3/uL (3.5-10.8)
[2019-06-02 06:24] LABS: Albumin 3.3 g/dL (3.2-5.2); Albumin/Globulin Ratio 0.9 (1-3); BUN/Creatinine Ratio 16.3 (8-20); EGFR African American 95.3 (>60); EGFR Non-African American 78.8 (>60); Globulin 3.5 g/dL (2-4); Potassium 4.2 mmol/L (3.5-5.0); Total Bilirubin 0.7 mg/dL (0.2-1.0); Total Protein 6.8 g/dL (6.4-8.9)
[2019-06-02] MEDS: Pantoprazole TAB * 40 MG TAB PO SCH (08:58)
[2019-06-02] MEDS: Finasteride TAB* 5 MG PO SCH (08:58)
[2019-06-02] MEDS ORDERED: Gadoteridol* (CONTRAST) 279.3 MG/ML 10 ML IV ONE (10:14)
--- NOTE | 2019-06-02 11:45 | PN ---
Progress Note - Progress Note Date of Service: 06/02/19 SOAP: Subjective: []Feeling OK overall. Has still required some IV morphine, willy. at night. Family at bedside. very concerned about uncontrolled pain. Aware of his advanced diagnosis and pending pathology. Very appreciative of Dr. Xiao's care. Medications: Acetaminophen (Tylenol Tab*) 650 mg PO Q4H PRN PRN Reason: MILD PAIN or TEMP > 100.4 Docusate Sodium (Colace Cap*) 100 mg PO BEDTIME [facility] Last Admin: 06/02/19 00:14 Dose: 100 mg Finasteride (Proscar Tab*) 5 mg PO DAILY [facility]; Protocol Last Admin: 06/02/19 08:58 Dose: 5 mg Piperacillin Sod/Tazobactam (Sod 3.375 gm/ Sodium Chloride) 100 mls @ 25 mls/ hr IVPB Q8H [facility] Last Admin: 06/02/19 05:28 Dose: 25 mls/hr Melatonin (Melatonin) 3 mg PO BEDTIME PRN PRN Reason: SLEEP Last Admin: 05/31/19 19:56 Dose: 3 mg Morphine Sulfate (Morphine Inj (Syringe))*) 2 mg IV Q4H PRN PRN Reason: PAIN - SEVERE Last Admin: 06/01/19 23:40 Dose: 2 mg Morphine Sulfate (Ms Contin(*)) 15 mg PO Q12H [facility] Last Admin: 06/02/19 08:58 Dose: 15 mg Ondansetron HCl (Zofran Inj*) 4 mg IV Q6H PRN PRN Reason: NAUSEA/VOMITING Last Admin: 06/01/19 04:37 Dose: 4 mg Oxycodone/Acetaminophen (Percocet 5/325 Tab*) 1 tab PO Q4H PRN PRN Reason: PAIN - MODERATE Last Admin: 05/31/19 05:37 Dose: 1 tab Pantoprazole Sodium (Protonix Tab*) 40 mg PO DAILY [facility] Last Admin: 06/02/19 08:58 Dose: 40 mg Pharmacy Consult (Zosyn Per Pharmacy*) 1 note FOLLOW UP .ZOSYN PER PHARMACY [facility] Prochlorperazine (Compazine Tab*) 10 mg PO Q6HR PRN PRN Reason: NAUSEA/VOMITING Last Admin: 06/01/19 07:58 Dose: 10 mg Senna (Senokot 8.6 Mg Tab*) 2 tab PO BEDTIME [facility] Last Admin: 06/02/19 00:14 Dose: 2 tab Objective: [] Vital Signs Temp Pulse Resp BP Pulse Ox 97.7 F 77 18 131/55 98 06/02/19 09:00 06/02/19 09:00 06/02/19 09:00 06/02/19 09:00 06/02/19 09:00 A&Ox3, neuro grossly non-focal HRR, S1S2, SR on tele LS dim. bilat., no wheeze or rhonchi +BS, soft and non-tender No edema, +PP=bilat. Frail appearing Hoarse voice Laboratory Results - last 24 hr 06/02/19 06/02/19 05:53 05:53 WBC 9.2 RBC 3.93 L Hgb 12.1 L Hct 35 L MCV 90 MCH 31 MCHC 34 RDW 13 Plt Count 263 MPV 7.2 L Neut % (Auto) 90.8 Lymph % (Auto) 5.4 [place] % (Auto) 3.4 Eos % (Auto) 0.0 Baso % (Auto) 0.4 Absolute Neuts (auto) 8.3 H Absolute Lymphs (auto) 0.5 L Absolute Monos (auto) 0.3 Absolute Eos (auto) 0.0 Absolute Basos (auto) 0.0 Absolute Nucleated RBC 0.0 Nucleated RBC % 0.0 Sodium 135 Potassium 4.2 Chloride 100 L Carbon Dioxide 26 Anion Gap 9 BUN 15 Creatinine 0.92 Est GFR ( Amer) 95.3 Est GFR (Non-Af Amer) 78.8 BUN/Creatinine Ratio 16.3 Glucose 127 H Calcium 9.0 Total Bilirubin 0.70 AST 18 ALT 23 Alkaline Phosphatase 76 Total Protein 6.8 Albumin 3.3 Globulin 3.5 Albumin/Globulin Ratio 0.9 L Assessment: []83 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 loss with work-up revealing diffuse metastatic disease including REEL BLADE BENDER FURNACE TENDER lesions seen on MRI this AM. Bronch yesterday with path pending. Reviewed current diagnosis of widely metastatic disease with REEL BLADE BENDER FURNACE TENDER lesions likely decreasing his prognosis. Mr. Mandujano however wished to wait for further information regarding path which we should have tomorrow at the earliest. We will review at tumor board. Plan: []1. Metastatic cancer: path pending - present @ interdisciplinary tumor board tomorrow - MRI with lesions however minimal symptoms - Consult RadMary Beth 2. Pain: - continue prn oxycocone, try to wean off IV and therefore will inc. long acting to TID - laxatives for bowels 3. Question of secondary infection: - completes 3 days of IV Zosyn today, no fevers, d/c tonight Dispo: pain seems improved however still requiring IV narcotics, adjustments as above with hope of home tomorrow afternoon, PT steve. for safety @ home
[2019-06-02] MEDS: Morphine INJ* 2 MG/ML 1 ML SYRINGE (TWO MG - NEW SYRINGE VERSION) IV PRN (13:43)
--- NOTE | 2019-06-02 15:34 | PN ---
Progress Note - Progress Note Date of Service: 06/02/19 - Pulm f/u note Note: patient seen and examined at bedside this morning. Patient reports improvement in shortness of breath. Patient reports that he has slept well last night. Patient reports no significant cough or sputum production this morning. He is currently off of oxygen and saturating well on room air. Active Medications Generic Name Dose Route Start Last Admin Trade Name Freq PRN Reason Stop Dose Admin Acetaminophen 650 mg 05/30/19 15:37 Tylenol Tab* PO Q4H PRN MILD PAIN or TEMP > 100.4 Docusate Sodium 100 mg 06/01/19 21:00 06/02/19 00:14 Colace Cap* PO 100 mg BEDTIME [facility] Administration Finasteride 5 mg 05/31/19 09:00 06/02/19 08:58 Proscar Tab* PO 5 mg DAILY [facility] Administration Protocol Piperacillin Sod/Tazobactam 100 mls @ 25 mls/hr 05/30/19 22:00 06/02/19 13:39 Sod 3.375 gm/ Sodium Chloride IVPB 25 mls/hr Q8H [facility] Administration Melatonin 3 mg 05/30/19 19:26 05/31/19 19:56 Melatonin PO 3 mg BEDTIME PRN Administration SLEEP Morphine Sulfate 2 mg 05/30/19 19:25 06/02/19 13:43 Morphine Inj (Syringe))* IV 2 mg Q4H PRN Administration PAIN - SEVERE Morphine Sulfate 15 mg 06/01/19 10:00 06/02/19 08:58 Ms Contin(*) PO 15 mg Q12H [facility] Administration Ondansetron HCl 4 mg 05/30/19 15:37 06/01/19 04:37 Zofran Inj* IV 4 mg Q6H PRN Administration NAUSEA/VOMITING Oxycodone/Acetaminophen 1 tab 05/30/19 19:25 05/31/19 05:37 Percocet 5/325 Tab* PO 1 tab Q4H PRN Administration PAIN - MODERATE Pantoprazole Sodium 40 mg 05/31/19 09:00 06/02/19 08:58 Protonix Tab* PO 40 mg DAILY [facility] Administration Pharmacy Consult 1 note 05/30/19 16:00 Zosyn Per Pharmacy* FOLLOW UP .ZOSYN PER PHARMACY [facility] Prochlorperazine 10 mg 05/30/19 15:55 06/01/19 07:58 Compazine Tab* PO 10 mg Q6HR PRN Administration NAUSEA/VOMITING Senna 2 tab 06/01/19 21:00 06/02/19 00:14 Senokot 8.6 Mg Tab* PO 2 tab BEDTIME [facility] Administration Vital Signs Temp Pulse Resp BP Pulse Ox 97.4 F 70 18 110/53 96 06/02/19 15:20 06/02/19 15:20 06/02/19 15:20 06/02/19 15:20 06/02/19 15:20 O/E: Pt in NAD HEENT: PERRLA Lungs: Diminished on left side, scattered wheeze CVS;S1, S2+ Abd: Soft, BS+ Ext: Normal ROM Skin: NO rash Neuro: NO focal deficits Laboratory Results - last 24 hr 06/02/19 06/02/19 05:53 05:53 WBC 9.2 RBC 3.93 L Hgb 12.1 L Hct 35 L MCV 90 MCH 31 MCHC 34 RDW 13 Plt Count 263 MPV 7.2 L Neut % (Auto) 90.8 Lymph % (Auto) 5.4 [place] % (Auto) 3.4 Eos % (Auto) 0.0 Baso % (Auto) 0.4 Absolute Neuts (auto) 8.3 H Absolute Lymphs (auto) 0.5 L Absolute Monos (auto) 0.3 Absolute Eos (auto) 0.0 Absolute Basos (auto) 0.0 Absolute Nucleated RBC 0.0 Nucleated RBC % 0.0 Sodium 135 Potassium 4.2 Chloride 100 L Carbon Dioxide 26 Anion Gap 9 BUN 15 Creatinine 0.92 Est GFR ( Amer) 95.3 Est GFR (Non-Af Amer) 78.8 BUN/Creatinine Ratio 16.3 Glucose 127 H Calcium 9.0 Total Bilirubin 0.70 AST 18 ALT 23 Alkaline Phosphatase 76 Total Protein 6.8 Albumin 3.3 Globulin 3.5 Albumin/Globulin Ratio 0.9 L ?R: 83 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 loss with work-up revealing diffuse metastatic disease including TRAINING ASSISTANT lesions seen on MRI patient underwent bronchoscopy yesterday, procedure was uneventful Patient was noted to have endobronchial lesion and left main stem bronchus occluding left lower lobe and left upper lobe bronchi Patient noted to have mucus plugging and blood clots over the lesion Airways appear to be patent behind the lesion Patient reports improvement in breathing this morning Endobronchial biopsies were obtained from the lesion that are pending Bronchoalveolar lavage was also obtained from the left side Patient had MRI of the brain done today which is concerning for metastatic disease I have discussed bronchoscopy findings in detail with the patient and his family at bedside further management as per oncology
[2019-06-02] MEDS: Ondansetron INJ* 2 MG/ML VIAL IV PRN (21:40)
[2019-06-03] MEDS: Morphine INJ* 2 MG/ML 1 ML SYRINGE (TWO MG - NEW SYRINGE VERSION) IV PRN ×2 (00:08→13:24)
[2019-06-03] MEDS: ZOSYN 3.375 GM Q8H per EXTENDED INFUSION IVPB SCH ×6 (05:35→22:14)
[2019-06-03] MEDS: Finasteride TAB* 5 MG PO SCH (09:04)
[2019-06-03] MEDS: oxyCODONE/Acetamin 5/325 MG* TAB PO PRN (09:05)
[2019-06-03] MEDS: Pantoprazole TAB * 40 MG TAB PO SCH (09:06)
[2019-06-03] MEDS: Morphine TAB Extended Release (*) 15 MG TAB.ER PO SCH (09:59)
[2019-06-03] MEDS: Polyethylene Glycol 3350* 17 GM PACKET PO SCH ×2 (13:23→22:08)
--- NOTE | 2019-06-03 14:20 | PN ---
Progress Note - Progress Note Date of Service: 06/03/19 SOAP: Subjective: []he is doing well. Continues to have sharp pain down R leg, comes and goes, hip down side of leg. Pain occurs lying in bed, not made worse by walking. Constipated, no BM in 4 days. No additional cough. Acetaminophen (Tylenol Tab*) 650 mg PO Q4H PRN PRN Reason: MILD PAIN or TEMP > 100.4 Docusate Sodium (Colace Cap*) 100 mg PO BEDTIME [facility] Last Admin: 06/02/19 21:39 Dose: 100 mg Finasteride (Proscar Tab*) 5 mg PO DAILY [facility]; Protocol Last Admin: 06/03/19 09:04 Dose: 5 mg Piperacillin Sod/Tazobactam (Sod 3.375 gm/ Sodium Chloride) 100 mls @ 25 mls/ hr IVPB Q8H [facility] Last Admin: 06/03/19 05:35 Dose: 25 mls/hr Melatonin (Melatonin) 3 mg PO BEDTIME PRN PRN Reason: SLEEP Last Admin: 05/31/19 19:56 Dose: 3 mg Morphine Sulfate (Morphine Inj (Syringe))*) 2 mg IV Q4H PRN PRN Reason: PAIN - SEVERE Last Admin: 06/03/19 13:24 Dose: 2 mg Morphine Sulfate (Ms Contin(*)) 15 mg PO Q12H [facility] Last Admin: 06/03/19 09:59 Dose: 15 mg Ondansetron HCl (Zofran Inj*) 4 mg IV Q6H PRN PRN Reason: NAUSEA/VOMITING Last Admin: 06/02/19 21:40 Dose: 4 mg Oxycodone/Acetaminophen (Percocet 5/325 Tab*) 1 tab PO Q4H PRN PRN Reason: PAIN - MODERATE Last Admin: 06/03/19 09:05 Dose: 1 tab Pantoprazole Sodium (Protonix Tab*) 40 mg PO DAILY [facility] Last Admin: 06/03/19 09:06 Dose: 40 mg Pharmacy Consult (Zosyn Per Pharmacy*) 1 note FOLLOW UP .ZOSYN PER PHARMACY [facility] Polyethylene Glycol/Electrolytes (Miralax*) 17 gm PO 0800,2100 [facility] Last Admin: 06/03/19 13:23 Dose: 17 gm Prochlorperazine (Compazine Tab*) 10 mg PO Q6HR PRN PRN Reason: NAUSEA/VOMITING Last Admin: 06/01/19 07:58 Dose: 10 mg Senna (Senokot 8.6 Mg Tab*) 2 tab PO BEDTIME [facility] Last Admin: 06/02/19 21:39 Dose: 2 tab Objective: [] Vital Signs Temp Pulse Resp BP Pulse Ox 98.6 F 78 18 125/61 95 06/03/19 11:39 06/03/19 11:39 06/03/19 13:24 06/03/19 11:39 06/03/19 11:39 HEENT: no oral lesions No Lad CTA RRR S1S2 +BS NT ND, no masses Ext w/o c/c/e Neuro: gross non focal, conversational and oriented 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 loss with work-up revealing an endo bronchial pulmonary mass, large para spinal mass and multiple DUMBWAITER OPERATOR lesions c/w metastatic disease. Biopsy with likely SCC but small sample, no molecular studies to date. Discussed diagnosis of cancer. He understands he had lung cancer and cancer next to spine and in brain, that the disease is unpredictable and that he will from the cancer. If he has therapy that can give him more time to, "get some things in order", he would like to do that. Plan: []1. Metastatic SSLC - Need additional tissue for molecular studies, US guided Bx of paraspinal lesion. - Case discussed with Dr. Peterson, XRT to endobronchial and para spinal mass. 2. DUMBWAITER OPERATOR disease, plan gamma knife - Dex 2 mg po bid. 2. Pain: - continue prn oxycocone, try to wean off IV and therefore will inc. - Morphine ER to 30 mg po bid 3. Question of secondary infection: - completes 3 days of IV Zosyn today, no fevers, d/c tonight 4. Constipation, Miralax bid until BM 5. Disp home with improved pain control.
[2019-06-03] MEDS ORDERED: fentaNYL* 50 MCG/ML 2 ML VIAL (100 MCG VIAL) ONE ×2 (16:07)
[2019-06-03] MEDS ORDERED: Naloxone* 0.4 MG/ML 1 ML VIAL ONE (16:07)
[2019-06-03] MEDS: Docusate CAP* 100 MG PO SCH (22:08)
[2019-06-03] MEDS: Senna TAB 8.6 mg* TAB PO SCH (22:08)
[2019-06-03] MEDS: Morphine TAB Extended Release (*) 30 MG TAB.ER PO SCH (22:09)
[2019-06-03] MEDS: Dexamethasone TAB* 1 MG PO SCH (22:09)
[2019-06-04] MEDS: ZOSYN 3.375 GM Q8H per EXTENDED INFUSION IVPB SCH ×2 (06:05)
[2019-06-04] MEDS: Polyethylene Glycol 3350* 17 GM PACKET PO SCH (08:19)
[2019-06-04] MEDS: Finasteride TAB* 5 MG PO SCH (08:21)
[2019-06-04] MEDS: oxyCODONE/Acetamin 5/325 MG* TAB PO PRN ×2 (08:21→14:51)
[2019-06-04] MEDS: Pantoprazole TAB * 40 MG TAB PO SCH (08:21)
[2019-06-04] MEDS: Dexamethasone TAB* 1 MG PO SCH (08:21)
[2019-06-04] MEDS: Morphine TAB Extended Release (*) 30 MG TAB.ER PO SCH (10:58)
--- NOTE | 2019-06-04 12:49 | DS ---
- Discharge Summary Admission Date: 05/30/19 Discharge Date: 06/04/19 Discharge Diagnosis: 1. Newly diagnosed metastatic cancer: final path pending 2. Cancer related pain: controlled with narcotics and RT initiated 3. Constipation: narcotic induced, improved with laxatives Discharge Medications: Medication Instructions Recorded Confirmed Type Dutasteride [Avodart] 0.5 mg PO DAILY 05/30/19 05/30/19 History Omeprazole 20 mg PO DAILY 05/30/19 05/30/19 History Prochlorperazine TAB* [Compazine 10 mg PO Q6HR PRN 05/30/19 05/30/19 History Tab*] Acetaminophen TAB* [Tylenol TAB*] 650 mg PO Q6HR #0 06/04/19 05/30/19 Rx Dexamethasone TAB* [Decadron TAB*] 2 mg PO BID #60 tab 06/04/19 Rx Docusate CAP* [Colace Cap*] 200 mg PO BEDTIME #60 cap 06/04/19 Rx Melatonin 3 mg PO BEDTIME PRN #30 tab 06/04/19 Rx Morphine TAB Extended Rel(*) [Ms 30 mg PO Q12HR #60 tab.er MDD 60 06/04/19 Rx Contin(*)] mg (2 tabs) Polyethylene Glycol 3350* 17 gm PO 0800,2100 PRN #60 packet 06/04/19 Rx [Miralax*] Senna TAB 8.6 mg* [Senokot 8.6 mg 2 tab PO BEDTIME #60 tab 06/04/19 Rx TAB*] oxyCODONE/Acetamin 5/325 MG* 1 tab PO Q4H PRN #60 tab MDD 6 tabs 06/04/19 Rx [Percocet 5/325 TAB*] Condition: Stable Disposition: Home Diet: As tolerated Activity: As tolerated Hospital Course: Please see admission note for full H&P, however, briefly, Mr. 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 He presented to the ER on 05/30/19 with hemoptysis, severe pain, and weight loss. CT imaging revealed a left hilar, bronchial mass with associated adenopathy and a right paraspinal mass with destruction of L1. He was admitted for further work-up and treated empirically with IV antibiotics. Pain meds were initiated. Dr. Varma was consulted and a bronchoscopy was performed on 06/01/19 with endobronchial mass identified and biopsies obtained. A MRI of the brain was performed on 06/02/19, unfortunately revealing several areas of metastatic disease. Mr. Mandujano was started on long acting narcotics and has had improved pain control. Mr. Mandujano's case was presented at the interdisciplinary tumor board on 06/03 with path revealing a non-small cell carcinoma with further stains pending. This did not appear to represent a recurrence of his prior porocarcinoma. Radiation was felt to be prudent for both local control of the hemoptysis and pain control to the hip/back. Considation of gamma knife will occur as an outpatient as he has no neurological symptoms. He was started on low dose dexamethasone. Mr. Mandujano had a second biopsy performed to the paraspinal mass for further molecular testing. He had a radiation consult and simulation today. At this time Mr. Sepulvedas pain has been well controlled and he continues to ambulate independently. We have recommended a palliative consult to discuss code status, however with path pending and a good performance status he is not currently a good candidate for hospice (though this option will be discussed in the near future). We have recommended home palliative care and continuation of current pain meds. He will continue follow-up with Dr. Peterson to initiate radiation and will see Dr. Xiao to discuss treatment planning further on . - Nutrition: Malnutrition Diagnosis/Plan Nutrition: Malnutrition Diagnosis/Plan: Malnutrition Assessment Clinical Characteristics Chronic,Moderate Malnutrition Assessment: - mild subcutaneous fat loss (orbital, ribs) per Criteria visual assessment - 10% wt loss in past six months per at record at [facility] inpatient - consuming <75% energy needs for past month d/ t poor appetite Malnutrition Assessment: - offered pt alternate menu items on his regular Interventions diet; he declined at this time - offered trial of Ensure Enlive; he also declined this for now (but will revisit in another few days) (anxious and preoccupied w/what his doctors might tell him 06/01 about prognosis and plan) Malnutrition Assessment: Goals 1. adequate intake to support hydration and lean body mass without add'l wt loss 2. maintain serum electrolytes WNL 3. maintain regulated bowel pattern; no c/o constipation (or diarrhea)
--- NOTE | 2019-06-04 13:08 | CONSULT ---
Palliative / Hospice Consult Ordering Provider: Angy Nguyen Referal Reason: goals of care/bowel meds/MS & oxy - Subjective Code Status: DNR Advance Directives Location: No Advance Directives MOLST Part A Completed: Yes - completed with pt on chart MOLST Part E Completed:: Yes - completed with pt on chart - History or Present Illness History or Present Illness: 83yo male with history of porocarcinoma of the thumb diagnosed 2017 presents to ER with hemoptysis, decreased appetite and increased fatigue. PMH is significant for porocarcinoma removed 06/2018, BPH, hyperlipidemia, anxiety and post herpetic neuralgia. PSHx ex tob user, rare etoh, with 2 children Una([phone]) is his HCP(on chart). Studies EKG NSR, chest CTA no PE, L hilar mass & medialstinal adenopathy, abd/chest/pel CT bilat adrenal masses, large paraspinous mass L1 with destruction of the vertebral body also affecting L2 suspicious for metastatic disease, bronchial lavage neg for malignant cells, brain MRI L posterior frontal lobe with 2cm mass with vasogenic edema but no shift, ekg#2 NSR, H/H 12.1/35, BUN/Cr 15/.92, egfr 78.8, alb 3.6, INR 1.35 and CRP 98.68. Pt admitted wit new hilar mass with mets and hemoptysis. No prior admissions. All history is from the pt, family and medical record. Lab Values: Abnormal Lab Results 06/01/19 20:58 LNGPR Interp TNP Laboratory Last Values WBC 9.2 10^3/uL (3.5-10.8) 06/02/19 05:53 RBC 3.93 10^6 /uL (4.18-5.48) L 06/02/19 05:53 Hgb 12.1 g/dL (14.0-18.0) L 06/02/19 05:53 Hct 35 % (42-52) L 06/02/19 05:53 MCV 90 fL (80-94) 06/02/19 05:53 MCH 31 pg (27-31) 06/02/19 05:53 MCHC 34 g/dL (31-36) 06/02/19 05:53 RDW 13 % (10-15) 06/02/19 05:53 Plt Count 263 10^3/uL (150-450) 06/02/19 05:53 MPV 7.2 fL (7.4-10.4) L 06/02/19 05:53 Neut % (Auto) 90.8 % 06/02/19 05:53 Lymph % (Auto) 5.4 % 06/02/19 05:53 Carter % (Auto) 3.4 % 06/02/19 05:53 Eos % (Auto) 0.0 % 06/02/19 05:53 Baso % (Auto) 0.4 % 06/02/19 05:53 Absolute Neuts (auto) 8.3 10^3/ul (1.5-7.7) H 06/02/19 05:53 Absolute Lymphs (auto) 0.5 10^3/ul (1.0-4.8) L 06/02/19 05:53 Absolute Monos (auto) 0.3 10^3/ul (0-0.8) 06/02/19 05:53 Absolute Eos (auto) 0.0 10^3/ul (0-0.6) 06/02/19 05:53 Absolute Basos (auto) 0.0 10^3/ul (0-0.2) 06/02/19 05:53 Absolute Nucleated RBC 0.0 10^3/ul 06/02/19 05:53 Nucleated RBC % 0.0 06/02/19 05:53 INR (Anticoag Therapy) 1.35 (0.82-1.09) H 05/30/19 11:28 Sodium 135 mmol/L (135-145) 06/02/19 05:53 Potassium 4.2 mmol/L (3.5-5.0) 06/02/19 05:53 Chloride 100 mmol/L (101-111) L 06/02/19 05:53 Carbon Dioxide 26 mmol/L (22-32) 06/02/19 05:53 Anion Gap 9 mmol/L (2-11) 06/02/19 05:53 BUN 15 mg/dL (6-24) 06/02/19 05:53 Creatinine 0.92 mg/dL (0.67-1.17) 06/02/19 05:53 Est GFR ( Amer) 95.3 (>60) 06/02/19 05:53 Est GFR (Non-Af Amer) 78.8 (>60) 06/02/19 05:53 BUN/Creatinine Ratio 16.3 (8-20) 06/02/19 05:53 Glucose 127 mg/dL (70-100) H 06/02/19 05:53 Lactic Acid 1.0 mmol/L (0.5-2.0) 05/30/19 11:28 Calcium 9.0 mg/dL (8.6-10.3) 06/02/19 05:53 Total Bilirubin 0.70 mg/dL (0.2-1.0) 06/02/19 05:53 AST 18 U/L (13-39) 06/02/19 05:53 ALT 23 U/L (7-52) 06/02/19 05:53 Alkaline Phosphatase 76 U/L (34-104) 06/02/19 05:53 Troponin I 0.00 ng/mL (<0.04) 05/30/19 16:28 C-Reactive Protein 98.68 mg/L (<8.01) H 05/30/19 11:28 Total Protein 6.8 g/dL (6.4-8.9) 06/02/19 05:53 Albumin 3.3 g/dL (3.2-5.2) 06/02/19 05:53 Globulin 3.5 g/dL (2-4) 06/02/19 05:53 Albumin/Globulin Ratio 0.9 (1-3) L 06/02/19 05:53 LNGPR Interp TNP 06/01/19 20:58 - Objective Active Medications: Acetaminophen (Tylenol Tab*) 650 mg PO Q4H PRN PRN Reason: MILD PAIN or TEMP > 100.4 Dexamethasone (Decadron Tab*) 2 mg PO BID ALECIA Last Admin: 06/04/19 08:21 Dose: 2 mg Docusate Sodium (Colace Cap*) 100 mg PO BEDTIME ALECIA Last Admin: 06/03/19 22:08 Dose: 100 mg Finasteride (Proscar Tab*) 5 mg PO DAILY ALECIA; Protocol Last Admin: 06/04/19 08:21 Dose: 5 mg Piperacillin Sod/Tazobactam (Sod 3.375 gm/ Sodium Chloride) 100 mls @ 25 mls/ hr IVPB Q8H [facility] Last Admin: 06/04/19 06:05 Dose: 25 mls/hr Melatonin (Melatonin) 3 mg PO BEDTIME PRN PRN Reason: SLEEP Last Admin: 05/31/19 19:56 Dose: 3 mg Morphine Sulfate (Ms Contin(*)) 30 mg PO Q12HR [facility] Last Admin: 06/04/19 10:58 Dose: 30 mg Ondansetron HCl (Zofran Inj*) 4 mg IV Q6H PRN PRN Reason: NAUSEA/VOMITING Last Admin: 06/02/19 21:40 Dose: 4 mg Oxycodone/Acetaminophen (Percocet 5/325 Tab*) 1 tab PO Q4H PRN PRN Reason: PAIN - MODERATE Last Admin: 06/04/19 08:21 Dose: 1 tab Pantoprazole Sodium (Protonix Tab*) 40 mg PO DAILY [facility] Last Admin: 06/04/19 08:21 Dose: 40 mg Pharmacy Consult (Zosyn Per Pharmacy*) 1 note FOLLOW UP .ZOSYN PER PHARMACY [facility] Polyethylene Glycol/Electrolytes (Miralax*) 17 gm PO 0800,2100 [facility] Last Admin: 06/04/19 08:19 Dose: 17 gm Prochlorperazine (Compazine Tab*) 10 mg PO Q6HR PRN PRN Reason: NAUSEA/VOMITING Last Admin: 06/01/19 07:58 Dose: 10 mg Senna (Senokot 8.6 Mg Tab*) 2 tab PO BEDTIME [facility] Last Admin: 06/03/19 22:08 Dose: 2 tab Vital Signs: Vital Signs: Temp Pulse Resp BP Pulse Ox 98.3 F 82 18 141/62 92 06/04/19 02:01 06/04/19 02:01 06/04/19 10:58 06/04/19 02:01 06/04/19 02:01 Patient Weight: Weight 74.843 kg Intake and Output: Intake & Output 06/02/19 06/03/19 06/04/19 06/05/19 06:59 06:59 06:59 06:59 Intake Total 1560 1468 2430 Balance 1560 1468 2430 Weight 74.843 kg Intake: IV Fluids 1200 60 90 ABX - ZOSYN 30 Lr 1200 NS (0.9%) 30 90 IVPB 208 300 ABX - ZOSYN 208 300 Oral 360 1200 2040 Other: Estimated Void Medium Medium # Voids 0 0 1 ADLs: Meal Record Start: 05/30/19 16: 47 Freq: DAILY@0900,1400,1800 Status: Active Protocol: Created 05/30/19 16:47 System (Rec: 05/30/19 16:47 System MED-C13) Document 05/31/19 09:00 [id number] (Rec: 05/31/19 11:00 [id number] MED-C16) Document 05/31/19 14:00 [id number] (Rec: 05/31/19 14:17 [id number] MED-C16) Document 05/31/19 18:00 [id number] (Rec: 05/31/19 18:51 [id number] MED-C11) Document 06/01/19 09:00 [id number] (Rec: 06/01/19 09:25 [id number] MED-C11) Document 06/01/19 13:34 [id number] (Rec: 06/01/19 13:35 [id number] MED-C11) Document 06/01/19 18:00 [id number] (Rec: 06/01/19 23:27 [id number] MED-C09) Document 06/02/19 09:00 [id number] (Rec: 06/02/19 19:02 [id number] MED-C11) Document 06/02/19 14:00 [id number] (Rec: 06/02/19 19:02 [id number] MED-C11) Document 06/02/19 18:00 [id number] (Rec: 06/02/19 19:02 [id number] MED-C11) Document 06/03/19 09:00 [id number] (Rec: 06/03/19 10:45 [id number] MED-C11) Document 06/03/19 14:00 [id number] (Rec: 06/03/19 16:34 [id number] MED-C09) Document 06/03/19 18:00 [id number] (Rec: 06/03/19 18:49 [id number] MED-C09) Document 06/04/19 09:00 [id number] (Rec: 06/04/19 10:04 [id number] MED-C09) Intake and Output Start: 05/30/19 10: 18 Freq: Status: Active Protocol: Created 05/30/19 10:18 System (Rec: 05/30/19 10:18 System ED-C24) Intake and Output Start: 05/30/19 16: 47 Freq: DAILY@0600,1400,2200 Status: Active Protocol: Created 05/30/19 16:47 System (Rec: 05/30/19 16:47 System MED-C13) Document 05/30/19 22:00 [id number] (Rec: 05/30/19 22:22 [id number] MEDL-C02) Document 05/31/19 05:31 [id number] (Rec: 05/31/19 05:35 [id number] MED-C09) Document 05/31/19 14:00 [id number] (Rec: 05/31/19 14:17 [id number] MED-C16) Document 05/31/19 21:28 [id number] (Rec: 05/31/19 21:29 [id number] MED-C11) Document 06/01/19 06:00 [id number] (Rec: 06/01/19 06:11 [id number] MED-C11) Document 06/01/19 13:34 [id number] (Rec: 06/01/19 13:35 [id number] MED-C11) Document 06/01/19 22:00 [id number] (Rec: 06/01/19 23:27 [id number] MED-C09) Document 06/02/19 05:09 [id number] (Rec: 06/02/19 05:10 [id number] MED-C09) Document 06/02/19 14:00 PTQ5554 (Rec: 06/02/19 19:02 [id number] MED-C11) Document 06/02/19 21:49 [id number] (Rec: 06/02/19 21:50 [id number] TELE-M20) Document 06/03/19 06:00 [id number] (Rec: 06/03/19 06:14 [id number] MED-C04) Document 06/03/19 14:00 [id number] (Rec: 06/03/19 16:34 [id number] MED-C09) Document 06/03/19 22:00 [id number] (Rec: 06/04/19 00:47 [id number] MED-C11) Document 06/04/19 05:19 [id number] (Rec: 06/04/19 05:20 [id number] TELE-M12) Eyes: No Scleral Icterus Ears/Nose/Mouth/Throat: Clear Oropharnyx, Mucous Membranes Moist Neck: NL Appearance and Movements; NL JVP, Trachea Midline Cardiovascular: NL Sounds; No Murmurs; No JVD, No Edema Abdominal: NL Sounds; No Tenderness; No Distention Extremities: No Edema, No Clubbing, Cyanosis Neurological: Alert and Oriented x 3 - Assessment Assessment: 83yo male with metastatic cancer awaiting tissue diagnosis - Plan Consult Plan (MU): Palliative Plan: Long discussion with pt and about goals of care and their concerns. Pt is worried about having support and knowing her limits. is concerned will think he can do more than he can. Their son lives down the street and the daughter lives in [place]? Case management is making a referral to [facility] and [facility] brochure was given and we discussed what they can offer. They are also familiar with [facility]. We also discussed and completed MOLST form. Pt doesn't want to have CPR or to be intubated or a feeding tube but would like a trial of non invasive ventilation. Hospice information was given but he is not eligible yet since he wants radiation. Right now they are still processing the diagnosis. KPS 70%, PPS 70% - Time On Unit Date of Evaluation: 06/04/19 Hospice Consult Time in: 12:30 Hospice Consult Time Out: 14:00 Hospice Consult Time Total: 90 > 50% of Time Spend In Counseling or Coordinating Care: Yes
[2019-06-04 13:34] VITALS: BP 118/58
--- NOTE | 2019-06-04 23:45 | RADMED ---
RADIATION ONCOLOGY INPATIENT CONSULTATION NOTE: DATE OF SERVICE: 06/03/19 - ROOM #414 DIAGNOSIS: Metastatic lung cancer. HISTORY OF PRESENT ILLNESS: Mr. 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 He has had recent episodes of hemoptysis, which increased and led to radiographic workup identifying left lung hilar mass as well as destructive lesion in the L1 vertebral body and brain metastasis. His case was reviewed at multidisciplinary tumor board after a recent bronchoscopy with endobronchial biopsy confirming malignancy. He underwent additional biopsy of a paraspinal mass around L1 to obtain additional tissue for molecular studies. Because of severe pain from the L1 lesion and hemoptysis, he was referred for consideration of palliative radiation therapy. PAST MEDICAL HISTORY: 1. Lung cancer, as in the history of present illness. 2. 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 3. Hyperlipidemia. MEDICATIONS: As per the inpatient record. ALLERGIES: SULFA. FAMILY HISTORY: Noncontributory. SOCIAL HISTORY: He is a former smoker. He is accompanied by his and son. REVIEW OF SYSTEMS: As in history of present illness; otherwise, complete review of systems is asked of the patient without additional associated symptomatic findings. PHYSICAL EXAM: General: He is awake, alert, oriented, and in no acute distress. Vital Signs: Temperature 98.5, pulse rate 81, respiratory rate 20, oxygen saturation 98% on room air, blood pressure 119/54. Lungs: With symmetric air entry bilaterally. Cardiovascular: S1, S2. Abdomen: Soft, nontender. No mass. No organomegaly. Extremities: No cyanosis, clubbing, or edema. Tenderness to palpation around L1 and the right hip. Motor function intact, limited by pain at the right lower extremity. DIAGNOSTIC STUDIES/LAB DATA: Pathology and Radiology: Reviewed, as in the history of present illness. ASSESSMENT AND PLAN: Mr. Mandujano is an 83-year-old gentleman with recently diagnosed metastatic lung cancer, with additional pathology for confirmation of molecular studies pending from biopsy of the paraspinal mass at L1. I reviewed with the patient and his family the logistics and rationale for consideration of palliative radiation therapy to the left hilar mass for hemoptysis as well as for the L1 spinal lesion and paraspinal mass which is extending into the psoas muscle, likely responsible for his right hip pain. With regard to palliative radiation therapy, I explained the logistics and rationale for treatment, risks, benefits, and alternatives as well as the acute and long-term frequent and uncommon toxicities, and I did answer the patient and his family's questions to the best of my ability. He is inclined to proceed for radiation therapy as discussed and did sign informed consent. He will undergo CT simulation tomorrow to facilitate treatment planning. For his situation, I recommend 2000 cGy at 400 cGy per fraction to each site, tentative treatment start date of 06/05/19. [id number]/[facility] #: [id number] [facility]
== END 2019-06-04 15:40 | disposition hospice, home (50) | DRG 166 ==
LOC: ED 10:13 → MED 15:29
PROVIDERS: ADMIT Internal Medicine; ATTEND Internal Medicine Hematology & Oncology
PROC: 0B9G8ZX Drainage of Left Upper Lung Lobe, Via Natural or Artificial Opening Endoscopic, Diagnostic (ICD-10-PCS; 2019-06-01)
PROC: 0BDB8ZX Extraction of Left Lower Lobe Bronchus, Via Natural or Artificial Opening Endoscopic, Diagnostic (ICD-10-PCS; 2019-06-01)
PROC: 0B9J8ZX Drainage of Left Lower Lung Lobe, Via Natural or Artificial Opening Endoscopic, Diagnostic (ICD-10-PCS; principal; 2019-06-01 15:00)
PROC: 0P943ZX Drainage of Thoracic Vertebra, Percutaneous Approach, Diagnostic (ICD-10-PCS; 2019-06-03)
DX: C34.32 Malignant neoplasm of lower lobe, left bronchus or lung (principal); J18.9 Pneumonia, unspecified organism; G93.6 Cerebral edema; E44.0 Moderate protein-calorie malnutrition; C79.31 Secondary malignant neoplasm of brain; C79.51 Secondary malignant neoplasm of bone; M19.90 Unspecified osteoarthritis, unspecified site; N40.0 Benign prostatic hyperplasia without lower urinary tract symptoms; E78.5 Hyperlipidemia, unspecified; F41.9 Anxiety disorder, unspecified; R59.0 Localized enlarged lymph nodes; G89.29 Other chronic pain; M25.551 Pain in right hip; R79.89 Other specified abnormal findings of blood chemistry; I27.20 Pulmonary hypertension, unspecified; K59.03 Drug induced constipation; T40.605A Adverse effect of unspecified narcotics, initial encounter; Z85.820 Personal history of malignant melanoma of skin; Z88.2 Allergy status to sulfonamides; Z87.891 Personal history of nicotine dependence; Y92.9 Unspecified place or not applicable; Z79.899 Other long term (current) drug therapy; Z68.23 Body mass index [BMI] 23.0-23.9, adult
CPT/HCPCS: 36415; 70553; 71275; 74177; 77012; 77014; 80048; 80053; 81445; 83605; 84484; 85025; 85610; 86140; 87070; 87077; 87102; 87116; 87205; 87206; 87899; 88112; 88172; 88173; 88305; 88341; 88342; 88360; 93005; 99233; 99284; A9270-GY; A9579; G8978-GP-CH; G8979-GP-CH; G8980-GP-CH; J0330; J1100; J2001; J2250; J2270; J2310; J2405; J2543; J2704; J3010; Q0164; Q9967

== ENCOUNTER 2019-06-09 15:31 | Inpatient (IN) | payer MEDICARE, OTHER ==
[2019-06-09] MEDS ORDERED: Morphine INJ* 2 MG/ML 1 ML SYRINGE (TWO MG - NEW SYRINGE VERSION) IV PRN (15:44)
[2019-06-09] MEDS ORDERED: Ondansetron INJ* 2 MG/ML VIAL IV PRN (15:44)
[2019-06-09] MEDS ORDERED: Propofol* 100 ML ONE (16:37)
[2019-06-09] MEDS ORDERED: fentaNYL* 50 MCG/ML 5 ML VIAL (250 MCG VIAL) ONE (16:49)
[2019-06-09] MEDS ORDERED: Midazolam* 1 MG/ML 10 ML VIAL (10 MG) ONE (16:54)
[2019-06-09] MEDS ORDERED: Morphine INJ* 4 MG/ML 1 ML SYRINGE (NEW SYRINGE VERSION) ONE (17:34)
--- NOTE | 2019-06-09 17:53 | PN ---
Progress Note - Progress Note Date of Service: 06/09/19 Note: Date: 06/09/19 Time: 5:00 pm Indication: Respiratory Distress A time-out was completed verifying correct patient, procedure, site, positioning. The patient was placed in a flat position. Patient was premedicated with Fentanyl. Sedation was obtained using Versed 3mg, and additionally with Etomidate 20mg. The patient was easily ventilated using an ambu bag. The GLIDESCOPE was used and inserted into the oropharynx at which time there was a Grade 1 view of the vocal cords. A 7.5-taiwanese endotracheal tube was inserted and visualized going through the vocal cords. The stylette was removed. Colorimetric change was visualized on the CO2 meter. Breath sounds were heard in both lung sharp equally. The endotracheal tube was placed at 23 cm, measured at the teeth. Patient had bronchoscopy for airway inspection, endotracheal tube placement was confirmed to be 3 cm above the level of caterian. Estimated Blood Loss: None The patient tolerated the procedure well and there were no complications. He remains hypoxic inspite of being on 100% FiO2.
--- NOTE | 2019-06-09 17:56 | BRIEFOPN ---
Brief Operative/Procedure Note - Operation Details Pre-Op Diagnosis: Hypoxic resp failure, h/o endobronchial lesion, lung cancer Post-Op Diagnosis: Endobronchial lesion with occlusion of left main stem with bleeding from lesion gravitating to LLL Procedures: Bronchoscopy Surgeon(s)/Proceduralists: Kojo Anesthesia: Pt on propofol drip after intubation Estimated Blood Loss: None Findings: Large endobronchial lesion with increase in size since most recent bronchoscopy wiht complete occlusion into lt main stem. Bleeding from lesion with suctioning Specimen(s)/Culture(s) Description: None Complications: None
[2019-06-09] MEDS ORDERED: fentaNYL* 50 MCG/ML 2 ML VIAL (100 MCG VIAL) IV SLOW PU ONE (17:57)
[2019-06-09] MEDS ORDERED: Morphine INJ* 4 MG/ML 1 ML SYRINGE (NEW SYRINGE VERSION) IV ONE (17:59)
[2019-06-09] MEDS ORDERED: Propofol* 100 ML IV SCH (18:06)
[2019-06-09] MEDS ORDERED: Morphine PCA ADULT* 5 MG/ML 30 ML PCA SCH (18:30)
[2019-06-09 18:38] VITALS: BP 102/56
--- NOTE | 2019-06-09 19:04 | PN ---
Progress Note - Progress Note Date of Service: 06/09/19 - Pulm note Note: Bronch findings were discussed with family, all questions addressed Poor prognosis given severe hypoxic resp failure inspite of 100% FiO2 was discussed Family wanted comfort measures only Family requested terminal extubation Morphine drip was ordered Plan for comfort measures and terminal extubation tonight Dr Xiao was informed
--- NOTE | 2019-06-09 19:59 | CONS ---
PULMONARY CONSULTATION REPORT: DATE OF CONSULT: 06/09/19 CONSULTATION REQUESTED BY: Dr. Zaire Xiao. REASON FOR CONSULT: Respiratory failure. HISTORY OF PRESENT ILLNESS: The patient is an 83-year-old male known to me from recent inpatient evaluation. 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 The patient also with evidence of metastatic disease. The patient presented to oncology office today for evaluation of shortness of breath. He was noted to have O2 sats in low 50s in spite of being on 5 to 6 L oxygen. Decision was made to admit the patient to the ICU. I was consulted for evaluation of possible endobronchial obstruction with mucus plug. The patient was saturating in low 50s on arrival to the ICU. He was subsequently placed on high flow oxygen with no significant improvement in his saturations. The patient is DNR/ DNI; however, agreed for intubation for possible bronchoscopy in a hope of having this condition improved. The patient rescinded DNI, but not DNR. The patient was intubated in ICU by me. Please refer to separately dictated intubation procedure report and bronchoscopy report. The patient did not have any improvement in O2 sats after intubation while on 100% FiO2. He was mentating well, hemodynamically stable. Bronchoscope was subsequently inserted through ET tube. The patient with no significant abnormality on the right side. No significant secretions were noted, thin white secretions noted, which were suctioned out. The patient had progression of the endobronchial lesion from the last time. He had near complete occlusion of the left lower lobe bronchus. There is slit like opening leading some air into the left upper lobe bronchus. Some mucus plugs and blood clots were noted, which were also suctioned. In spite of all that, the patient's saturation, however, did not improve. I have subsequently discussed with family the poor prognosis and they have agreed to initiate comfort measures. The patient is currently intubated on the ventilator with O2 sats while on 100% FiO2 and 12 of PEEP. The patient was started on morphine drip for comfort. PAST MEDICAL HISTORY: 1. Recently diagnosed metastatic lung cancer. 2. 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 3. History of having a pleural tumor removed. 4. BPH. 5. Dyslipidemia. 6. Anxiety. 7. Postherpetic neuralgia. 8. Cataract removal. MEDICATIONS: Medications at home on admission included: 1. Compazine. 2. MiraLAX. 3. Morphine. 4. Ativan. 5. Avodart. 6. Docusate. 7. Dexamethasone. 8. Lipitor. 9. Aspirin. 10. Acetaminophen. ALLERGIES: SULFA drugs. FAMILY HISTORY: The patient denied any history of malignancies in the family. SOCIAL HISTORY: Former smoker, quit 15 years ago. Rarely drinks alcohol. and lives at home with his and 2 children. REVIEW OF SYSTEMS: Limited given the patient's respiratory distress. He did not complain of significant shortness of breath. He continued to have hemoptysis. The patient reported feeling generally ill and drained. The patient also reported having back pain. PHYSICAL EXAM: Prior to intubation, the patient was alert, awake, in mild respiratory distress. Vital Signs: Temperature 98.1, pulse 90 beats per minute , respiratory rate 26 per minute, O2 sat around 50% on 100% FiO2. HEENT: Pupils equal, reactive to light. Mucous membranes moist. Lungs: Diminished air entry to absent breath sounds on the left side, clear on right side. Cardiovascular: S1, S2 present, tachycardic. Abdomen: Soft, nontender, nondistended. Bowel sounds present. Extremities: Normal range of motion. Skin: No rash. Neuro: Sedated, currently on ventilator. No focal deficits. DIAGNOSTIC STUDIES/LAB DATA: No new labs this admission. CTA of the chest performed today was personally reviewed by me - no evidence of filling defects in pulmonary arteries. The patient with collapse of left lower lobe, evidence of endobronchial lesion in the left mainstem. No evidence of pulmonary embolism noted. IMPRESSION AND RECOMMENDATIONS: 83-year-old male with metastatic lung cancer, squamous cell with poor prognosis. The patient with hemoptysis and deteriorating respiratory status. The patient presented with severe hypoxemic respiratory failure. The patient was intubated with no significant improvement in his hypoxemia. The patient currently on 100% FiO2, on mechanical ventilation. Bronchoscopy performed revealed endobronchial obstruction from the lesion in the left mainstem. The patient with evidence of bleeding from the lesion and mucus and small amount of mucus around the area. Lesion has increased in size since last evaluation. Given poor prognosis, family requested comfort measures. The patient also wanted a trial of intubation to have the bronchoscopy done for evaluation of the endobronchial area. The patient requested to c/w DNR and wanted no aggressive measures if the lesion is progressive and clinical course is predicted to worsen. Family also agreed with the patient's wishes and the patient was made comfortable, will be switching to morphine drip. Will discuss with the family regarding terminal extubation if no improvement noted. TIME SPENT: Total time spent on history and physical is 50 minutes excluding procedures. [id number]/[facility] #: [id number] [facility]
[2019-06-09] MEDS ORDERED: Dexamethasone IV* 4 MG/ML 1 ML (4 MG) IV SLOW PU SCH (22:00)
--- NOTE | 2019-06-09 22:31 | PRO ---
BRONCHOSCOPY REPORT: DATE OF PROCEDURE: 06/09/19 PROCEDURE PERFORMED: Bronchoscopy for airway inspection. PREPROCEDURAL DIAGNOSIS: Hypoxemic respiratory failure, recently diagnosed squamous cell lung cancer with endobronchial lesion. The patient with hypoxemic respiratory failure, being evaluated for mucus plugging. ANESTHESIA: The patient is on propofol drip post-intubation. DESCRIPTION OF PROCEDURE: Verbal consent was obtained from the patient and family prior to the procedure. The procedure has to be done emergently and written consent could not be obtained. Time-out was performed and agreed on by attending staff prior to the procedure. The patient was intubated with 7.5 ET tube given significant hypoxemic respiratory failure. Ambulatory scope was inserted through ET tube. Bronchoscope was then advanced through the ET tube. The ET tube positioning was confirmed to be 3 cm above the level of caterina. Bronchoscope was then advanced into the right bronchial tree which was inspected. No endobronchial lesion or bleeding or mucus noted in that area. Bronchoscope was then advanced into the left bronchial tree. The patient was noted to have large endobronchial polypoid lesion blocking the airway in the left mainstem bronchus. The patient had bronchoscopy few days back and was noted to have endobronchial lesion at that time which biopsy showed squamous cell. He presented with hemoptysis and respiratory failure at that time. The patient with bleeding during the procedure with minimal suction. Any further suctioning was resulting in further bleeding; therefore, the procedure was terminated. The patient sats continued to remain low other than when he was having ambuing done at bedside. The patient's sats did not improve post- procedure. The patient's procedure was then terminated and family was informed at bedside. The patient decided on comfort measures at this time. The patient will be initiated on morphine. [id number]/[facility] #: [id number] [facility]
--- NOTE | 2019-06-09 22:40 | DS ---
DISCHARGE SUMMARY/ SUMMARY: DATE OF ADMISSION: 06/09/19 DATE OF EXPIRATION: 06/09/19 REASON FOR ADMISSION TO ICU: Severe hypoxemic respiratory failure. BRIEF DISCHARGE SUMMARY: The patient was an 83-year-old male sent in from oncology office for evaluation of acute hypoxemic respiratory failure. The patient with saturations around low 50s on arrival to the ICU on 5 L oxygen. He was transitioned to high flow oxygen with no improvement in sats. The patient is noted to have endobronchial lesion during recent bronchoscopy. He had CTA today for evaluation of pulmonary embolism, which did not reveal pulmonary embolism. However, he was noted to have collapse of right lower lobe. Bronchoscopy was planned to evaluate for possible endobronchial lesion, evaluation of possible mucus plugging in that area resulting in severe hypoxemic respiratory failure. The patient was DNR/DNI. The patient and family requested revoke of DNI to have intubation done to facilitate bronchoscopy. The patient expressed that he did not want to be DNR and did not want any further resuscitative measures. The patient was intubated and bronchoscopy was performed at bedside. No mucus plugging or thick secretions were noted. There was evidence of progression of his endobronchial lesion since the last bronchoscopy. The patient continued to be having low O2 sats in spite of intubation. Family was updated at bedside. Family requested comfort measures and also requested terminal extubation since he did not improve in spite of maximal vent settings. The patient was terminally extubated around 7:15 in the ICU. The patient quickly deteriorated, became bradycardic, and hypoxemic into the low 30s and was pronounced around 7:17 p.m. on 06/09/19. Asystole was confirmed. Family at bedside. The patient was on morphine drip prior to terminal extubation. The patient remained comfortable throughout the extubation and post extubation. Case was discussed with medical records field technician given less than 24 hours since admission. psychometric examiner did not have any further review on this case. The patient was pronounced on 06/09/19 [address] 7:[address] Xiao was notified. [id number]/[facility] #: [id number] [facility]
[2019-06-10] MEDS ORDERED: Enoxaparin(*) 40 MG/0.4 ML SYR SUBCUT SCH (18:00)
== END 2019-06-09 19:29 | disposition expired | DRG 208 ==
LOC: ICU 15:44 → UNDODISIN 19:29
PROVIDERS: ADMIT Internal Medicine Hematology & Oncology; ATTEND Internal Medicine Hematology & Oncology
PROC: 0BJ08ZZ Inspection of Tracheobronchial Tree, Via Natural or Artificial Opening Endoscopic (ICD-10-PCS; principal; 2019-06-09)
PROC: 5A1935Z Respiratory Ventilation, Less than 24 Consecutive Hours (ICD-10-PCS; 2019-06-09)
PROC: 0BH17EZ Insertion of Endotracheal Airway into Trachea, Via Natural or Artificial Opening (ICD-10-PCS; 2019-06-09)
DX: J96.01 Acute respiratory failure with hypoxia (principal); J98.19 Other pulmonary collapse; C34.32 Malignant neoplasm of lower lobe, left bronchus or lung; C79.31 Secondary malignant neoplasm of brain; C79.51 Secondary malignant neoplasm of bone; Z66 Do not resuscitate; F41.9 Anxiety disorder, unspecified; N40.0 Benign prostatic hyperplasia without lower urinary tract symptoms; I10 Essential (primary) hypertension; R11.0 Nausea; Z51.5 Encounter for palliative care; E78.5 Hyperlipidemia, unspecified; Z87.891 Personal history of nicotine dependence; Z88.2 Allergy status to sulfonamides; Z85.820 Personal history of malignant melanoma of skin
CPT/HCPCS: 31624; 71275; 87641; 94002; 96365; 99212; 99223; G0463; J1100; J2250; J2270; J2405; J2704; J3010; Q9967